=== PATIENT | male | born 1965 | race Caucasian/White ===

== ENCOUNTER 2017-01-10 22:35 | Inpatient (IN) | payer SELFPAY ==
[2017-01-10 23:05] LABS: #Basophils 0.1 thou/uL (0.0-0.2); #Eosinphils 0.3 thou/uL (0.0-0.7); #Lymphocytes 2.2 thou/uL (1.20-3.40); #Monocytes 0.6 thou/uL (0.11-0.59); #Neutrophils 4.3 thou/uL (1.40-6.50); %Basophils 1.1 % (0.0-1.0); %Eosinophils 4.3 % (0.0-10.0); %Lymphocytes 29.8 % (21.0-51.0); %Monocytes 7.7 % (0.0-10.0); Hematocrit 41.7 % (42.0-52.0); Mean Platelet Volume 6.8 fL (7.4-10.4); Red Blood Cell (RBC) Count 4.77 mill/uL (4.70-6.10); White Blood Cell (WBC) Count 7.5 thou/uL (4.8-10.8)
[2017-01-10 23:33] LABS: ALT (SGPT) 24 U/L (8-55); AST (SGOT) 18 U/L (5-34); Alkaline Phosphatase 100 U/L (40-150); Anion Gap 11 mmol/L (10-20); BUN (Urea Nitrogen) 17 mg/dL (8.4-25.7); Bilirubin, Total 0.4 mg/dL (0.2-1.2); Calc. Creatinine Clearance 0 mL/min (70-130); Calcium 8.6 mg/dL (7.8-10.44); Carbon Dioxide 24 mmol/L (22-29); Chloride 106 mmol/L (98-107); Estimated GFR-MDRD 64; Globulin 2.9 g/dL (2.4-3.5); Magnesium 2.6 mg/dL (1.6-2.6); Protein, Total 6.8 g/dL (6.0-8.3)
[2017-01-10 23:38] LABS: Troponin I Less than 0.010 ng/mL (< 0.028)
[2017-01-11] MEDS ORDERED: Fentanyl 100 MCG/2 ML VIAL ONE (00:06)
[2017-01-11] MEDS ORDERED: Ondansetron HCl/PF 4 MG/2 ML Vial ONE (00:07)
[2017-01-11 01:06] VITALS: BMI 29.1
[2017-01-11] MEDS: Sodium Chloride 0.9% 1,000 ML IV SCH ×2 (01:35→09:29)
[2017-01-11 02:09] LABS: Troponin I Less than 0.010 ng/mL (< 0.028)
[2017-01-11] MEDS: Nitroglycerin 0.4 MG TAB (25 Tab Bottle) PO PRN ×6 (04:15→09:21)
[2017-01-11] MEDS: Acetaminophen 325 MG TAB PO PRN ×3 (04:25→16:03)
[2017-01-11] MEDS ORDERED: Morphine 4 MG/ML VIAL SLOW IVP PRN (04:33)
[2017-01-11 04:58] LABS: #Basophils 0.1 thou/uL (0.0-0.2); #Eosinphils 0.3 thou/uL (0.0-0.7); #Lymphocytes 2.4 thou/uL (1.20-3.40); #Monocytes 0.5 thou/uL (0.11-0.59); #Neutrophils 3.4 thou/uL (1.40-6.50); %Basophils 1.1 % (0.0-1.0); %Eosinophils 5.1 % (0.0-10.0); %Lymphocytes 35.6 % (21.0-51.0); %Monocytes 7.6 % (0.0-10.0); Hematocrit 40.5 % (42.0-52.0); Mean Platelet Volume 6.9 fL (7.4-10.4); Red Blood Cell (RBC) Count 4.58 mill/uL (4.70-6.10); White Blood Cell (WBC) Count 6.7 thou/uL (4.8-10.8)
[2017-01-11 05:01] LABS: Hemoglobin A1c 5.1 % (4.0-6.0)
[2017-01-11 05:06] LABS: Anion Gap 8 mmol/L (10-20); BUN (Urea Nitrogen) 15 mg/dL (8.4-25.7); Calc. Creatinine Clearance 97 mL/min (70-130); Calcium 8.2 mg/dL (7.8-10.44); Carbon Dioxide 27 mmol/L (22-29); Chloride 107 mmol/L (98-107); Cholesterol 185 mg/dl (< 200 Desired); Estimated GFR-MDRD 66; LDL Cholesterol, Calculated 118 mg/dL
[2017-01-11 05:10] LABS: Troponin I Less than 0.010 ng/mL (< 0.028)
--- NOTE | 2017-01-11 07:59 | HP-2 ---
CODE STATUS: DNR. PRIMARY CARE PHYSICIAN: Kim soto. ATTENDING: Apple Garner M.D. PGY-1: Juma Powell M.D. CHIEF COMPLAINT: Chest pain. HISTORY OF PRESENT ILLNESS: This is a 51-year-old male, who presents with a 1-day history of chest p ain. He states over the past couple of months, he quit taking all of his meds after his pass ed away. He notices his pain worsens while exerting himself as well. He notes the pain occurred at rest tonight and radiated to his left arm. He had associated diaphoresis and nausea as well as numbn ess and tingling to his left arm. He states the pain improved with nitro. He also notes a headache that started with the nitro. He also notes that he cannot sleep flat any longer at night and has use d multiple pillows. He has no other complaints at this time. PAST MEDICAL HISTORY: Significant for coronary artery disease status post stent in 2007, hypertensio n, and restless leg syndrome. PAST SURGICAL HISTORY: Significant for stent placement. ALLERGIES: SULFA. MEDICATIONS: He is not currently taking any medications. FAMILY HISTORY: Heart disease in his maternal grandfather and in his mother. SOCIAL HISTORY: Denied tobacco, alcohol, or drug use. REVIEW OF SYSTEMS: General: Denies fever, chills, weight changes, night sweats, or fatigue. Eyes: Denies vision changes or eye pain. ENT: Denies nasal congestion, rhinorrhea, or sore throat. Resp iratory: Denies cough or congestion. Does admit to shortness of breath. Cardiovascular: Does admi t to chest pain and orthopnea as well as diaphoresis. Denies palpitations or edema. GI: He admits to nausea. Denies vomiting, diarrhea, constipation, abdominal pain, or GI bleeding. : Denies inc ontinence or dysuria. Skin: Denies rashes or lesions. Musculoskeletal: Denies pain, tenderness, s tiffness, swelling, or arthritis in any joints. Neurologic: Denies any weakness or numbness. Psych iatric: Denies anxiety or depression. PHYSICAL EXAMINATION: VITAL SIGNS: Blood pressure 135/78, pulse 59, respirations 20, temperature max 97.8, pulse ox 97% on room air, current weight is 91 kg. GENERAL: He is alert and oriented x4. Appropriately interactive. EYES: PERRLA. Conjunctivae are within normal limits. ENT: Tympanic membranes pearly [place] without bulging or erythema. Nasal mucosa and oropharynx within normal limits. NECK: Supple without lymphadenopathy or thyromegaly. CARDIOVASCULAR: Regular rate and rhythm. No murmurs, no gallops. Radial and pedal pulses are equal bilaterally. RESPIRATORY: Normal effort, no retractions. Clear lungs to auscultation bilaterally. SKIN: Warm and dry. ABDOMEN: Soft, nontender to palpation. Bowel sounds are present x4. No masses or distention. EXTREMITIES: No clubbing, cyanosis, or edema. MUSCULOSKELETAL: Structure, tone, muscle strength, and range of motion within normal limits. NEUROLOGIC: No focal neurologic deficits. Sensation within normal limits. Cranial nerves II throug h XII grossly intact. GCS was 15. PSYCHIATRIC: He was appropriate. LABORATORY DATA: White blood cell count 7.5, platelet count 217, hemoglobin 14.6, hematocrit 41.7, M CV was 87.4, percent neutrophils 57.1. Sodium 137, potassium 4.1, chloride 106, bicarbonate 24, BUN 17, creatinine 1.19, glucose 123, calcium 8.6, total protein 6.8, albumin 3.9, total bilirubin 0.4, A ST 18, ALT 24, alkaline phosphatase 100. Magnesium was 2.6. D-dimer 0.27. He had a CK-MB of 1.1 an d a troponin I of less than 0.01 x2. His EKG showed normal sinus rhythm with premature atrial contra ctions. His chest x-ray showed nothing acute. ASSESSMENT AND PLAN: This is a 51-year-old male with a history of hypertension and restless leg synd freida, presents with: 1. Unstable angina. We will get a consult in the morning. Get some lab work including TSH, BNP, fa sting lipid panel, trend his troponins, get an A1c, and put him on maintenance fluids. We will make him n.p.o. for the morning. His heart score was 5 and he will be put on therapeutic Lovenox. 2. Hypertension. We are going to restart his home medications and titrate his blood pressure in nor mal range with outpatient followup. 3. Restless leg syndrome. I will continue his home medications if needed. Disposition and length of hospital stay will be tele observation and 1. Symptomatic medications will be provided. History and physical exam as well as management will be discussed with Dr. Garner.
[2017-01-11] MEDS: Nitroglycerin 2% Ointment 1 INCH/1 GM Packet TOP SCH ×2 (08:22→15:16)
[2017-01-11] MEDS ORDERED: Enoxaparin Sodium 80 MG/0.8 ML SYRINGE SC SCH (09:00)
[2017-01-11] MEDS ORDERED: Enoxaparin Sodium 100 MG/ML SYRINGE SC SCH (09:00)
[2017-01-11] MEDS ORDERED: Sodium Chloride 0.9% 1,000 ML IV SCH (10:30)
--- NOTE | 2017-01-11 15:04 | CON ---
DATE OF CONSULTATION: 01/11/2017 CARDIOLOGY CONSULTATION INDICATION FOR CONSULTATION: This is a 51-year-old patient with a history of coronary artery disease . Per his records, he may have undergone angioplasty or stent placement in 2007 in [place], but he is uncertain whether or not any actual intervention was performed. He has been doing quite well. He r ecently lost his significant other partner less than 6 months ago. He has been moved to this area to live with his mother who also is in poor health. Over the last few weeks, he is actually been compl aining of some chest discomfort about a week with exertion. He describes it as being a catch or heather p discomfort in his chest which radiates to the shoulder blades. He has had some left arm numbness a nd occasionally sharp pain that will radiate to his back area. He also complains of associated nause a, but mainly fatigue. He does state that the discomfort is improved by nitroglycerin. He has been admitted to the hospital for observation. Enzymes are negative. EKG is unremarkable. The patient i s comfortable at this time. PAST MEDICAL HISTORY: Significant for possible angioplasty and stent placement in [place] on 2007. H e is uncertain of what was performed. He has a history of hypertension, restless leg syndrome, histo ry of asthma. His last flare was about a month and a half ago. He states he has had nephrolithiasis and a cholecystectomy. SOCIAL HISTORY: He recently lost his significant other. He has a history of alcohol or tobacco abus e. He says he is adopted. FAMILY HISTORY: Apparently his maternal mother had coronary artery disease as well as his maternal g randfather. ALLERGIES: He is allergic to SULFA which causes a rash. MEDICATIONS: At home include Requip, Zestril, aspirin, and albuterol. In the hospital, he has been given Tylenol, Lovenox, and nitroglycerin. REVIEW OF SYSTEMS: He has poor dentition and he wears contacts. He has restless leg syndrome, histo ry of occasional shortness of breath and chest pain. Otherwise, 12-point review of systems unremarka ble. PHYSICAL EXAMINATION: GENERAL: Reveals well-developed, well-nourished gentleman in no acute distress. VITAL SIGNS: Blood pressure 124/88, heart rate 70 and regular, afebrile, respiratory rate 16. HEENT: Exam shows head to be normocephalic and atraumatic. Oral mucosa was pink and moist. NECK: Carotid pulses are present. There were no bruits. No JVD. The thyroid is not enlarged. CHEST: Clear to auscultation. There are no rales, rhonchi or wheezing. CARDIOVASCULAR: Exam reveals regular rate and rhythm, normal S1 and S2. There is no S3, S4. There were no significant murmurs, heaves, thrills, bruits or rubs. ABDOMEN: Soft and nontender with positive bowel sounds. No organomegaly or masses are noted. Femor al pulses are present. EXTREMITIES: Showed no clubbing, cyanosis or edema. Pedal pulses are present. NEUROLOGIC: Neurologically, the patient appears to be fully intact with normal strength and tone. SKIN: Warm and dry. IMAGING AND LABORATORY DATA: EKG shows a normal sinus rhythm, no acute changes. Cardiac enzymes are negative for myocardial infarction. LDL is 118, creatinine is 1.17, hemoglobin 13.8. At this time, the patient appears to be stable. We need to obtain the records from [place]. IMPRESSION AND PLAN: 1. Chest pain of uncertain etiology with a history of possible coronary artery disease. We will nee d to obtain the records from [place] to see what actually was performed and also I will suggest he und ergo stress testing since enzymes are negative and EKG is also unremarkable. Should the stress test be abnormal, then he would most likely need to undergo a cardiac catheterization. 2. History of hypertension. This is under good control at this time. We will continue the present medications. 3. History of restless leg syndrome. He can certainly continue with his Requip at this time if nece ssary. Otherwise, we will continue to follow the patient with you.
[2017-01-11] MEDS ORDERED: Regadenoson 0.4 MG/5 ML SYRINGE ONE (15:34)
[2017-01-11 15:56] VITALS: BP 165/92; TEMP 97.3
--- NOTE | 2017-01-11 16:16 | NM ---
CARDIAC SPECT WITH EJECTION FRACTION AND WALL MOTION: HISTORY: 51-year-old male with chest pain. History of coronary artery disease and MO. Status post stent. Hyper tension. TECHNIQUE/FINDINGS: Exercise sestamibi study was performed. Patient was injected with 33.3 mCi technetium-99m sestamibi i ntravenously for stress images and patient was injected with 9 mCi of technetium-99m sestamibi intrav enously for resting images. Multiple SPECT images in the short axis, vertical long axis, and horizontal long axis demonstrate no scan evidence for infarct or ischemia. TID: 1.17 LHR: 0.42 EDV: 90 ml EF: 53% MYOCARDIAL PERFUSION WALL MOTION: Wall motion is normal. IMPRESSION: Unremarkable cardiac SPECT with ejection fraction and wall motion. No scan evidence for infarct or is chemia. POS: KAROLINE
[2017-01-11] MEDS ORDERED: FLU VACC QS2017-18 36 mo. & older 0.5 ML SYRINGE IM ONE (21:00)
--- NOTE | 2017-01-12 05:50 | HP ---
ATTENDING NOTE DATE OF SERVICE: 01/11/2017 CHIEF COMPLAINT: Chest pain. HISTORY OF PRESENT ILLNESS: The patient is a 51-year-old male with past medical history of hypertension and possibly coronary artery disease who presented to the ER with acute onset of substernal chest pain with associated tingling in his left hand, nausea, and diaphoresis. The patient notes that this came on at rest after eating dinner and his sister who is a nurse advised him to take two aspirin. When the patient's chest pain continued and worsened, she advised him to go to the ER. The patient has been under increased stress recently and his recently and his brother is under hospice care. The patient also notes that over the course of the past several weeks, he has been having progressive shortness of breath with exertion and now has difficulty walking to the mailbox without having chest pain. In the ER, the patient had cardiac enzymes that were negative x2 and initial EKG which showed normal sinus rhythm. Chest x-ray was unremarkable. The patient has been given therapeutic Lovenox. Overnight after the patient arrived to floor, he again developed similar chest pain. The patient had been given additional set of cardiac enzymes as well as an EKG. The EKG was initially read as a Mobitz type 1. At some point it was thought, he may actually be having PVCs on the EKG since he progressively had elongating MO intervals with what appears to be a dropped beat, but it is difficult to tell just on the EKG. The QRS complexes resembled bigeminy. Due to the patient's symptoms, Cardiology consulted this morning and Dr. Leone is recommended the patient have a stress test and an echo has also been ordered for the patient. PHYSICAL EXAMINATION: GENERAL: The patient is awake, alert, oriented, in no acute distress. CARDIOVASCULAR: Regular rate and rhythm without murmurs, gallops, or rubs. LUNGS: Clear to auscultation bilaterally without wheezing or rhonchi. ABDOMEN: Soft, nontender, nondistended, bowel sounds present. EXTREMITIES: No clubbing, cyanosis, or edema. PSYCHIATRIC: The patient displays appropriate mood and affect during the exam. ASSESSMENT AND PLAN: 1. Unstable angina versus atypical chest pain: The patient was given therapeutic Lovenox overnight. He will be sent for a stress test per cardiology 's recommendations. 2. Hypertension: Home medications were restarted. 3. Please see Dr. Oliveira's dictation for the full history and physical, assessment and plan. We have discussed the case and I have repeated pertinent portions and history and physical myself. COLTEN
--- NOTE | 2017-01-12 11:30 | DIS-2 ---
DATE OF ADMISSION: 01/11/2017 DATE OF DISCHARGE: 01/11/2017 RESIDENT: Hui Wolfe D.O. ADMITTING ATTENDING: Mady Vizcarra M.D. DISCHARGE ATTENDING: Apple Garner M.D. CONSULT: Cardiology. PROCEDURES: 1. Stress test, which revealed an unremarkable cardiac SPECT with ejection fraction and wall motion. No evidence for infarct or ischemia. 2. Echocardiogram was performed that showed 60% to 65% ejection fraction and no other abnormalities. PRIMARY DIAGNOSIS: Atypical chest pain, likely secondary to stress and anxiety. SECONDARY DIAGNOSES: 1. Hypertension. 2. Restless leg syndrome. DISCHARGE MEDICATIONS: 1. Aspirin 81 mg p.o. daily. 2. Ropinirole HCL 6 mg p.o. at bedtime. 3. Lisinopril 10 mg p.o. daily. DISCONTINUED MEDICATIONS: None. HISTORY OF PRESENT ILLNESS AND HOSPITAL COURSE: The patient is a 51-year-old male who presented to [facility] ED with 1 day history of chest pain over the past month, has noticed a sharp pain with exertion. He noted the pain occurred at rest tonight and radiated to the left arm. He also reported some tingl ing in his left arm as well as diaphoresis. The patient had some nitro and states the pain improved to the nitro. The patient also reported orthopnea recently. He had a significant history of coronar y artery disease, status post stent in 2007, as well as hypertension. He was placed in observation u nit. An EKG was done that showed possible Mobitz I heart block, but when reviewed with Cardiology sa id it was likely not a Mobitz heart block and recommended a stress test to evaluate heart function as well as an echo. A stress test was performed and patient was found to have no significant ischemic changes as well as an echo, which showed normal left ventricular ejection fraction and no indications of diastolic dysfunction. The patient also has significant social history that involved her passing away last month and his mom who is in hospice currently. It is likely the anxiety and stres s and emotional distress of these events could have precipitated his chest pain. I spoke with abigail santos about the importance of following up with a PCP likely [facility] due to his lack of insurance at the time. The patient was discharged home in stable condition. He had troponins negative x3. DISPOSITION: Stable. DISCHARGE INSTRUCTIONS: 1. Location: Home. 2. Diet: Heart healthy. 3. Activity: As tolerated. 4. Follow up with [facility] in 1-2 weeks.
--- NOTE | 2017-01-17 08:19 | EKG ---
Test Reason : STAT Blood Pressure : / mmHG Vent. Rate : 071 BPM Atrial Rate : 104 BPM P-R Int : 000 ms QRS Dur : 078 ms QT Int : 372 ms P-R-T Axes : 043 050 047 degrees QTc Int : 404 ms Sinus tachycardia with 2nd degree A-V block (Mobitz I) Abnormal ECG When compared with ECG of 15-NOV-2002 23:17, Previous ECG has undetermined rhythm, needs review Confirmed by John MENESES ([id number]) on 01/17/2017 8:19:08 AM Referred By: MARY LEMUS Confirmed By:John MENESES
== END 2017-01-11 18:36 | disposition home or self-care (01) | DRG 313 ==
LOC: ERS 22:35 → OBSVTOIN 01-11 00:47 → 2SW 01-11 00:47
PROVIDERS: ADMIT Student in an Organized Health Care Education/Training Program; ATTEND Student in an Organized Health Care Education/Training Program
DX: R07.89 Other chest pain (principal); I25.110 Atherosclerotic heart disease of native coronary artery with unstable angina pectoris; I10 Essential (primary) hypertension; G25.81 Restless legs syndrome; Z88.2 Allergy status to sulfonamides; F10.21 Alcohol dependence, in remission; Z87.891 Personal history of nicotine dependence; Z95.5 Presence of coronary angioplasty implant and graft; Z66 Do not resuscitate; Z91.14 Patient's other noncompliance with medication regimen; F41.9 Anxiety disorder, unspecified; F43.9 Reaction to severe stress, unspecified
CPT/HCPCS: 36415; 78452; 80048; 80061; 83036; 83735; 83880; 84443; 84484; 85025; 85379; 93005; 93010; 93017; 93306; 94760; 96374; 96375; A4216; A9500; J2405; J2785; J3010